=== PATIENT | female | born 1965 ===

== ENCOUNTER 2022-09-20 04:22 | Day surgery (SDC) | payer OTHER ==
[2022-09-18 09:49] VITALS: BMI 34.5
[2022-09-20] MEDS ORDERED: PROPOFOL 40 ML ONE (10:06)
[2022-09-20] MEDS ORDERED: SUCCINYLCHOLINE CHLORIDE 200 MG/10 ML SYRINGE ONE (10:06)
[2022-09-20] MEDS ORDERED: MIDAZOLAM HCL 2 MG/2 ML SINGLE DOSE VIAL ONE (10:23)
[2022-09-20] MEDS ORDERED: KETOROLAC TROMETHAMINE 30 MG/1 ML VIAL IVPUSH ONE (11:14)
[2022-09-20] MEDS ORDERED: oxyCODONE HCL 5 MG TABLET PO PRN ×2 (11:14)
[2022-09-20] MEDS ORDERED: ACETAMINOPHEN 1000 MG/100 ML BAG IVPB ONE (11:14)
[2022-09-20] MEDS ORDERED: ONDANSETRON 4 MG/2 ML VIAL IVPUSH PRN (11:14)
[2022-09-20] MEDS ORDERED: PROMETHAZINE HCL 25 MG/1 ML VIAL IVPUSH PRN (11:14)
[2022-09-20] MEDS ORDERED: LACTATED RINGERS SOLUTION 1,000 ML IV SCH (11:15)
[2022-09-20] MEDS ORDERED: ACETAMINOPHEN INJECTION 100 ML IVPB ONE (11:41)
[2022-09-20 12:25] VITALS: RESP 20
[2022-09-20 13:21] VITALS: BP 116/70; PULSE 58; TEMP 97.5
== END 2022-09-20 13:21 | disposition home or self-care (01) ==
LOC: JASU-SURG 04:22
PROVIDERS: ATTEND Student in an Organized Health Care Education/Training Program
PROC: 0UB98ZZ Excision of Uterus, Via Natural or Artificial Opening Endoscopic (ICD-10-PCS; principal; 2022-09-20 09:30)
DX: N95.0 Postmenopausal bleeding (principal); N84.0 Polyp of corpus uteri
CPT/HCPCS: 86850; 86900; 86901; 88305-TC; 93005; 93010; 94760